=== PATIENT | female | born 1990 | race Caucasian/White ===

== ENCOUNTER 2017-10-23 13:34 | Emergency (ER) | payer OTHER ==
[~2017-10-23] VITALS: Ht 175.2 cm; Wt 90.7 kg
[2017-10-23] MEDS ORDERED: PROVIGIL200 MG PO (13:39)
[2017-10-23] MEDS ORDERED: IMITREX100 MG PO (17:34)
== END 2017-10-23 17:45 | disposition home or self-care (01) ==
LOC: ED 13:34
DX: G43.109 Migraine with aura, not intractable, without status migrainosus (principal); Z91.040 Latex allergy status; Z88.8 Allergy status to other drugs, medicaments and biological substances; Z79.899 Other long term (current) drug therapy